=== PATIENT | male | born 2000 | race Caucasian/White ===

== ENCOUNTER 2023-08-17 14:54 | Emergency (ER) | payer SELFPAY ==
[2023-08-17 16:15] VITALS: BP 126/76; PULSE 70; RESP 18; TEMP 98.5; BMI 38.0
== END 2023-08-17 16:45 | disposition home or self-care (01) ==
LOC: JERFT 14:54
PROC: 0HQFXZZ Repair Right Hand Skin, External Approach (ICD-10-PCS; principal; 2023-08-17)
DX: S61.212A Laceration without foreign body of right middle finger without damage to nail, initial encounter (principal); W26.0XXA Contact with knife, initial encounter
CPT/HCPCS: 99282-25